=== PATIENT | female | born 1985 | race Caucasian/White ===

== ENCOUNTER 2018-08-29 12:58 | Emergency (ER) | payer OTHER ==
[~2018-08-29] VITALS: Ht 152.4 cm; Wt 65.8 kg
[2018-08-29 14:16] LABS: ABSOLUTE NEUTROPHILS 5.9 thou/uL (1.4-8.2); BASOPHILS 0.4 % (0.0-2.0); EOSINOPHILS 0.5 % (0.0-3.0); HEMATOCRIT 37.3 % (37.0-47.0); HEMOGLOBIN 12.6 gm/dL (12.0-15.0); LYMPHOCYTES 20.1 % (24.0-44.0); MCH 32.4 pg (26.0-34.0); MCHC 33.7 g/dL (28.0-37.0); MCV 96.2 fL (80.0-100.0); MONOCYTES 6.2 % (1.0-8.0); PLATELET COUNT 255 thou/uL (150-400); POLYS 72.8 % (36.0-66.0); RBC 3.88 mil/uL (4.20-5.00); WBC 8.1 thou/uL (4.0-11.0)
[2018-08-29 14:18] LABS: URINE BILIRUBIN NEGATIVE (Negative); URINE BLOOD NEGATIVE (Negative); URINE CLARITY CLOUDY; URINE COLOR YELLOW; URINE GLUCOSE-RANDOM* NEGATIVE (Negative); URINE KETONES NEGATIVE (Negative); URINE LEUKOCYTES 1+ (Negative); URINE NITRITE NEGATIVE (Negative); URINE PROTEIN (DIPSTICK) NEGATIVE (Negative); URINE SPECIFIC GRAVITY <= 1.005 (1.005-1.035); URINE UROBILINOGEN 0.2 E.U./dl (0.2-1.0)
[2018-08-29 14:20] LABS: ANION GAP 10 mmol/L (7-16); BUN 11 mg/dL (7-18); CALCIUM 9.1 mg/dL (8.5-10.1); CHLORIDE 102 mmol/L (98-107); CO2 24 mmol/L (21-32); CREATININE 0.6 mg/dL (0.6-1.0); GLUCOSE 94 mg/dL (74-106); SODIUM 136 mmol/L (136-145)
[2018-08-29 14:26] LABS: ALBUMIN 4.1 g/dL (3.4-5.0); DIRECT BILIRUBIN < 0.1 mg/dL (<0.1-0.3); LIPASE 100 U/L (73-393); POTASSIUM 4.2 mmol/L (3.5-5.1); SGOT 22 U/L (15-37); SGPT 24 U/L (30-65); TOTAL BILIRUBIN 0.3 mg/dL (<0.1-1.0); TOTAL PROTEIN 7.7 g/dL (6.4-8.2)
[2018-08-29 14:28] LABS: BACTERIA 1-9 Few /HPF (None Seen); CASTS None Seen /LPF (None Seen); CRYSTALS None Seen /LPF (None Seen); SQUAMOUS 0-3 Few /LPF (0-3); URINE RBC None Seen /HPF (0-2); URINE WBC 0-5 Rare /HPF (0-5)
[2018-08-29] MEDS ORDERED: ONDANSETRON HCL4 M2 PO (16:13)
[2018-08-29] MEDS ORDERED: NORCO 5-325 TA1 EAC1 PO (16:20)
[2018-08-29 16:23] VITALS: BP 125/80
== END 2018-08-29 16:23 | disposition home or self-care (01) ==
LOC: ER 12:58
PROVIDERS: Nurse Practitioner
DX: R10.11 Right upper quadrant pain (principal); Z98.890 Other specified postprocedural states; Z90.711 Acquired absence of uterus with remaining cervical stump

== ENCOUNTER 2018-09-15 11:18 | Inpatient (IN) | payer OTHER ==
[~2018-09-15] VITALS: Ht 152.4 cm; Wt 71.2 kg
[2018-09-15] VITALS (8 sets, daily range): BP systolic 107–131; BP diastolic 67–87
[~2018-09-15 11:18] MED LIST: ACETAMINOPHEN-1 EAC1 PO; BENADRYL25 MG PO; NORCO 5-325 TA1 EAC1 PO; ONDANSETRON HCL4 M2 PO; SYNTHROID25 MC1 PO
--- NOTE | 2018-09-15 20:45 | NUR ---
PT ARRIVED TO UNIT POST OP AT APPROX 1600. ALERT AND ORIENTED. VSS. NAD NOTED. ADMISSION COMPLETE. PAIN MEDS GIVEN NEEDED YORDY PARTIAL RELIEF. FAMILY AT BEDSIDE. WILL CONTINUE TO MONITOR.
--- NOTE | 2018-09-16 02:53 | NUR ---
ASSUMED CARE OF PT AT 1900HRS. PT IS AOX4 AND LETS NEEDS BE KNOWN. PT AMBULATED TO THE TOILET. PT REPORTED PAIN AND ITCH. NO NAUSEA WAS REPORTED THIS SHIFT. PT MEDICATED WITH PRN MEDS. PT VOIDED THIS SHIFT. VSS AND NO S/S OF ACUTE DISTRESS. WILL CONTINUE TO MONITOR.
[2018-09-16 07:55] VITALS: BP 113/67
[2018-09-16 16:21] VITALS: BP 113/67
[2018-09-16 20:04] VITALS: BP 128/90
--- NOTE | 2018-09-16 20:40 | NUR ---
ASSUMED CARE OF PATIENT AT 0715, PATIENT ALERT AND ORIENTED X 4. PATIENT UP WITH SBA TO BATHROOM. PATIENT C/O PAIN MOST OF THE SHIFT, AND NAUSEA X 2. PATIENT NOT TOLERATING CLEAR LIQUIDS. DR ORDAZ NOTIFIED TO CHANGE STATUS FROM OBSERVATION TO INPATIENT. PATIENT HAS LEFT FOREARM IV WITH IV FLUIDS AT 80CC/HR. PATIENT HAS 4 LAP SITES WITH BANDAIDS COVERING. DR ORDAZ ORDERED MORE FOR NAUSEA, RECEIVED ORDER TO DISCONTINUE TO ORCO, AND ADD PERCOCET 1 TAB EVERY 4 HOURS/PRN. WILL CONTINUE TO MONITOR.
[2018-09-17 04:24] VITALS: BP 99/60
--- NOTE | 2018-09-17 05:25 | NUR ---
PATIENT ALERT AND ORIENTED X4. UP ADLIB TO BATHROOM. PASSING GAS. AT BEDSIDE THROUGHOUT THE NIGHT. IVF INFUSING W/O COMPLICATION. PAIN MEDS GIVEN DURING THE NIGHT. MEDICATED FOR NAUSEA, HOWEVER, NO EMESIS. C/O ITCHING AND SCHEDULED MEDICATION GIVEN, NO BENEDRYL ADMINISTERED DURING THE NIGHT. RESTING QUIETLY. COOPERATIVE WITH CARE. WILL MONITOR.
[2018-09-17 08:42] VITALS: BP 110/73
--- NOTE | 2018-09-17 11:13 | NUR ---
Assumed pt care this am, she is up at marcelo and able to ambulate from the bed to the toilet with a steady gait. pain was noted managed with medication. Tolerating clear liquids, advancing to soft diet will monitor for any signs of distress.
[2018-09-17] MEDS ORDERED: PHENERGAN 25 MG25 M1 PO (11:35)
[2018-09-17] MEDS ORDERED: PERCOCET PO (11:36)
[2018-09-17 12:48] VITALS: BP 110/73
== END 2018-09-17 15:32 | disposition home or self-care (01) | DRG 419 ==
LOC: 4W 11:18 → TBA 11:18 → PRE 12:27 → 4W 16:19
PROVIDERS: ADMIT Surgery
PROC: BF121ZZ Fluoroscopy of Gallbladder using Low Osmolar Contrast (ICD-10-PCS; principal; 2018-09-15)
PROC: 0FT44ZZ Resection of Gallbladder, Percutaneous Endoscopic Approach (ICD-10-PCS; principal; 2018-09-15)
DX: K81.9 Cholecystitis, unspecified (principal); Z79.899 Other long term (current) drug therapy
CPT/HCPCS: 10047; 50010; 50101; 50411; 50555; 50558; 51489; 53307; 53310; 55245; 55317; 56462; 56525; 56526; 62110; 62900; 70005

== ENCOUNTER 2019-05-31 11:45 | Emergency (ER) | payer OTHER ==
[~2019-05-31] VITALS: Ht 152.4 cm; Wt 70.3 kg
[~2019-05-31 11:45] MED LIST changes: +PERCOCET PO; +PHENERGAN 25 MG25 M1 PO
[2019-05-31] MEDS ORDERED: ALPRAZOLAM0.5 M1 PO (12:12)
[2019-05-31] MEDS ORDERED: CLARITIN10 M3 PO (12:13)
[2019-05-31 13:18] VITALS: BP 142/90
== END 2019-05-31 13:18 | disposition home or self-care (01) ==
LOC: ER 11:45
DX: Z03.818 Encounter for observation for suspected exposure to other biological agents ruled out (principal); R05 Cough; R09.81 Nasal congestion; R07.1 Chest pain on breathing; K21.9 Gastro-esophageal reflux disease without esophagitis; E03.9 Hypothyroidism, unspecified; R19.7 Diarrhea, unspecified; Z90.711 Acquired absence of uterus with remaining cervical stump; Z90.49 Acquired absence of other specified parts of digestive tract; Z79.899 Other long term (current) drug therapy

== ENCOUNTER → 2019-08-03 | Outpatient (CLI) | payer OTHER ==
[~2019-08-03] MED LIST changes: +ALPRAZOLAM0.5 M1 PO; +CLARITIN10 M3 PO
== END ==
LOC: LAB 07:54
PROVIDERS: ATTEND Student in an Organized Health Care Education/Training Program
DX: Z01.818 Encounter for other preprocedural examination (principal); Z11.59 Encounter for screening for other viral diseases

== ENCOUNTER → 2019-08-03 | Outpatient (CLI) | payer OTHER | END | disposition home or self-care (01) | LOC: GI 12:44 | PROVIDERS: ATTEND Nurse Practitioner | DX: R13.10 Dysphagia, unspecified (principal); K21.9 Gastro-esophageal reflux disease without esophagitis; E03.9 Hypothyroidism, unspecified; Z98.890 Other specified postprocedural states; Z79.899 Other long term (current) drug therapy; Z90.49 Acquired absence of other specified parts of digestive tract; Z86.010 Personal history of colon polyps; Z90.711 Acquired absence of uterus with remaining cervical stump | CPT/HCPCS: 62110; 62900 ==

== ENCOUNTER → 2020-01-11 | Outpatient (CLI) | payer OTHER | LOC: LAB 13:57 | PROVIDERS: ATTEND Internal Medicine Cardiovascular Disease | DX: R05 Cough (principal); R09.81 Nasal congestion; R06.02 Shortness of breath; U07.1 COVID-19 ==

== ENCOUNTER → 2020-02-14 | Outpatient (CLI) | payer OTHER | LOC: CAT 12:28 | PROVIDERS: ATTEND Internal Medicine | DX: Z13.6 Encounter for screening for cardiovascular disorders (principal); I25.10 Atherosclerotic heart disease of native coronary artery without angina pectoris; E78.00 Pure hypercholesterolemia, unspecified ==

== ENCOUNTER → 2020-02-16 | Outpatient (CLI) | payer OTHER ==
[2020-02-16 11:14] LABS: ABSOLUTE NEUTROPHILS 3.1 thou/uL (1.4-8.2); BASOPHILS 0.5 % (0.0-2.0); EOSINOPHILS 1.8 % (0.0-3.0); HEMATOCRIT 40.5 % (37.0-47.0); HEMOGLOBIN 13.7 gm/dL (12.0-15.0); LYMPHOCYTES 29.9 % (24.0-44.0); MCH 32.4 pg (26.0-34.0); MCHC 33.8 g/dL (28.0-37.0); MCV 95.7 fL (80.0-100.0); PLATELET COUNT 285 thou/uL (150-400); POLYS 59.8 % (36.0-66.0); RBC 4.23 mil/uL (4.20-5.00); RDW 12.1 % (10.5-14.5); WBC 5.1 thou/uL (4.0-11.0)
[2020-02-16 11:24] LABS: ALBUMIN 4.6 g/dL (3.4-5.0); ANION GAP 14 mmol/L (7-16); BUN 19 mg/dL (7-18); CALCIUM 9.3 mg/dL (8.5-10.1); CHLORIDE 105 mmol/L (98-107); CHOLESTEROL 183 mg/dL (<200); CO2 22 mmol/L (21-32); CREATININE 0.8 mg/dL (0.6-1.0); GLUCOSE 96 mg/dL (74-106); HDL CHOLESTEROL 36 mg/dL (>40); LDL CHOLESTEROL 126 mg/dL (<100); POTASSIUM 3.9 mmol/L (3.5-5.1); SGOT 68 U/L (15-37); SGPT 147 U/L (30-65); SODIUM 141 mmol/L (136-145); TC:HDL 5.1 Ratio (Not establshd); TOTAL BILIRUBIN 0.5 mg/dL (0.2-1.0); TOTAL PROTEIN 8.5 g/dL (6.4-8.2); TRIGLYCERIDE 108 mg/dL (<150); VLDL 22 mg/dL (<40)
[2020-02-16 23:06] LABS: GLYCOHEMOGLOBIN (HGB A1C) 5.3 % (4.8-5.6)
== END ==
LOC: LAB 10:25
PROVIDERS: ATTEND Family Medicine
DX: Z00.00 Encounter for general adult medical examination without abnormal findings (principal)

== ENCOUNTER 2020-02-19 09:36 | Emergency (ER) | payer OTHER ==
[~2020-02-19] VITALS: Ht 149.9 cm; Wt 73.5 kg
[2020-02-19 10:15] LABS: URINE BILIRUBIN NEGATIVE (Negative); URINE BLOOD NEGATIVE (Negative); URINE CLARITY CLEAR; URINE COLOR YELLOW; URINE GLUCOSE-RANDOM* NEGATIVE (Negative); URINE KETONES NEGATIVE (Negative); URINE LEUKOCYTES-REFLEX TRACE (Negative); URINE NITRITE-REFLEX NEGATIVE (Negative); URINE PROTEIN (DIPSTICK) NEGATIVE (Negative); URINE SPECIFIC GRAVITY >= 1.030 (1.005-1.035); URINE UROBILINOGEN 0.2 E.U./dl (0.2-1.0)
[2020-02-19 10:17] LABS: ABSOLUTE NEUTROPHILS 4.5 thou/uL (1.4-8.2); EOSINOPHILS 1.9 % (0.0-3.0); HEMATOCRIT 40.4 % (37.0-47.0); HEMOGLOBIN 13.5 gm/dL (12.0-15.0); LYMPHOCYTES 26.4 % (24.0-44.0); MCH 32.2 pg (26.0-34.0); MCHC 33.3 g/dL (28.0-37.0); MCV 96.6 fL (80.0-100.0); MONOCYTES 5.1 % (1.0-8.0); POLYS 65.6 % (36.0-66.0); RBC 4.18 mil/uL (4.20-5.00); RDW 12.3 % (10.5-14.5); WBC 6.8 thou/uL (4.0-11.0)
[2020-02-19 10:20] LABS: ANION GAP 15 mmol/L (7-16); BUN 15 mg/dL (7-18); CHLORIDE 104 mmol/L (98-107); CO2 18 mmol/L (21-32); CREATININE 0.6 mg/dL (0.6-1.0); GLUCOSE 106 mg/dL (74-106); POTASSIUM 4.8 mmol/L (3.5-5.1); SODIUM 137 mmol/L (136-145)
--- NOTE | 2020-02-19 10:23 | EKG ---
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
[2020-02-19 10:30] LABS: ALBUMIN 4.3 g/dL (3.4-5.0); SGOT 67 U/L (15-37); SGPT 122 U/L (30-65); TOTAL BILIRUBIN 0.4 mg/dL (0.2-1.0); TOTAL PROTEIN 8.2 g/dL (6.4-8.2); TROPONIN-I <0.06 ng/mL (<0.06)
[2020-02-19 11:26] VITALS: BP 119/98
[2020-02-19 14:25] LABS: PLATELET COUNT 235 thou/uL (150-400)
== END 2020-02-19 11:26 | disposition home or self-care (01) ==
LOC: ER 09:36
PROVIDERS: Emergency Medicine
DX: R07.89 Other chest pain (principal); R42 Dizziness and giddiness; R51.9 Headache, unspecified; R53.83 Other fatigue; R03.0 Elevated blood-pressure reading, without diagnosis of hypertension; R20.0 Anesthesia of skin; K21.9 Gastro-esophageal reflux disease without esophagitis; E03.9 Hypothyroidism, unspecified; Z90.711 Acquired absence of uterus with remaining cervical stump; Z98.890 Other specified postprocedural states; Z90.49 Acquired absence of other specified parts of digestive tract; Z79.899 Other long term (current) drug therapy; Z87.891 Personal history of nicotine dependence

== ENCOUNTER → 2020-02-19 | Outpatient (CLI) | payer OTHER | LOC: SJCVCIMAG 11:35 | PROVIDERS: ATTEND Internal Medicine Cardiovascular Disease | DX: R10.9 Unspecified abdominal pain (principal); R94.5 Abnormal results of liver function studies; R06.00 Dyspnea, unspecified; I10 Essential (primary) hypertension; R51.9 Headache, unspecified; R07.89 Other chest pain; Z90.49 Acquired absence of other specified parts of digestive tract ==

== ENCOUNTER → 2020-02-22 | Outpatient (CLI) | payer OTHER | LOC: ULTRA 12:34 → BC 12:34 | PROVIDERS: ATTEND Family Medicine | DX: N63.10 Unspecified lump in the right breast, unspecified quadrant (principal) ==

== ENCOUNTER → 2020-03-13 | Outpatient (CLI) | payer OTHER ==
[2020-03-13 13:36] LABS: ALBUMIN 4.5 g/dL (3.4-5.0); CALCIUM 9.6 mg/dL (8.5-10.1); CREATININE 0.9 mg/dL (0.6-1.0); POTASSIUM 3.4 mmol/L (3.5-5.1); TOTAL BILIRUBIN 0.4 mg/dL (0.2-1.0); TOTAL PROTEIN 8.3 g/dL (6.4-8.2)
[2020-03-14 00:06] LABS: HAV IgM AB (ANTI-HAV IgM) Negative (Negative); HEPATITIS B SURFACE AG Negative (Negative); HEPATITIS C VIRUS AB <0.1 (0.0-0.9)
== END ==
LOC: LAB 12:51
PROVIDERS: ATTEND Family Medicine
DX: R94.5 Abnormal results of liver function studies (principal)

== ENCOUNTER → 2020-05-07 | Outpatient (CLI) | payer OTHER | LOC: LAB 08:42 | PROVIDERS: ATTEND Family Medicine | DX: D68.0 Von Willebrand disease (principal) ==

== ENCOUNTER → 2020-05-28 | Outpatient (CLI) | payer OTHER | LOC: RAD 14:46 | PROVIDERS: ATTEND Family Medicine | DX: R10.2 Pelvic and perineal pain (principal) ==

== ENCOUNTER → 2020-05-29 | Outpatient (CLI) | payer OTHER | LOC: CAT 16:36 | PROVIDERS: ATTEND Family Medicine | DX: N32.89 Other specified disorders of bladder (principal); Z90.49 Acquired absence of other specified parts of digestive tract; Z90.710 Acquired absence of both cervix and uterus ==

== ENCOUNTER → 2020-07-03 | Outpatient (CLI) | payer OTHER | LOC: RAD 12:27 | PROVIDERS: ATTEND Nurse Practitioner | DX: Z04.3 Encounter for examination and observation following other accident (principal); W19.XXXA Unspecified fall, initial encounter ==

== ENCOUNTER → 2020-08-05 | Outpatient (CLI) | payer OTHER | LOC: MRI 08:17 | PROVIDERS: ATTEND Physical Medicine & Rehabilitation Sports Medicine | DX: M50.323 Other cervical disc degeneration at C6-C7 level (principal); R20.2 Paresthesia of skin; R29.898 Other symptoms and signs involving the musculoskeletal system ==

== ENCOUNTER → 2020-09-06 | Day surgery (SDC) | payer OTHER ==
[~2020-09-06] VITALS: Ht 149.9 cm; Wt 78.0 kg
[~2020-09-06] MED LIST changes: +BUPROPION XL300 MG PO; +TOPAMAX 100 MG100 MG PO
--- NOTE | ~2020-09-06 | O ---
[facility] [place] [address] OPERATIVE REPORT Name: KRYSTA KINCAID Room #: [facility]..#: [id number] Admission: 09/06/20 Attend Phys: Jose Eli MD Discharge: Date of : 81 Report #: [id number] THIS REPORT FOR: cc: Israel Zuniga James A. DO Yager, Craig A. MD ~ DATE OF SERVICE: 09/06/2020 PREOPERATIVE DIAGNOSIS: Left carpal tunnel syndrome. POSTOPERATIVE DIAGNOSIS: Left carpal tunnel syndrome. PROCEDURE: Left wrist median nerve decompression. ANESTHESIA: LMA. DESCRIPTION OF PROCEDURE: The patient was brought back to the operating room and anesthesia was given. Once satisfactory anesthesia was achieved, a nonsterile tourniquet was placed on the operative left upper extremity. The arm was then prepped and draped in the usual sterile fashion. After prepping and draping, once all members of surgical team were present and a time-out was called and the appropriate patient, site and procedure as well as administration preprocedure antibiotics was confirmed. The arm was elevated, exsanguinated and tourniquet inflated to 250 mmHg. Standard 2 cm incision was made in the webspace between the long and ring fingers. This was carried sharply through skin. Fascial tissue was transected sharply. Retractors were placed. Transverse carpal ligament was identified and transected with a clean #15 blade. Attention was then turned proximally. Tenotomy scissors were placed under the transverse carpal ligament, which was spread apart. It was then resected proximally in the sliding motion. A [place] elevator was inserted to ensure adequate release had been performed. Attention was then turned distally. Transverse carpal ligament was released with tenotomy sutures until deep ____ could be identified. The wound was then checked to ensure adequate release had occurred proximally and distally. It was then irrigated. Closure was performed with 4-0 nylon suture in a simple interrupted fashion. Xeroform, 4 x 4's, and an Andi wrap were placed as final dressing. The patient tolerated the procedure well. There were no complications. COMPLICATIONS: None. ESTIMATED BLOOD LOSS: 5 mL. [facility] [address] [place] [address] OPERATIVE REPORT Name: KRYSTA KINCAID [facility] Room #: REG [facility].#: [id number] Admission: 09/06/20 Attend Phys: Jose Eli MD Discharge: Date of : 81 Report #: [id number] DISPOSITION: The patient will be nonweightbearing with the left upper extremity for 2 weeks. Plan for followup in 2 weeks for suture removal. By: 1010 1102 Jose Eli MD /nt
[2020-09-06 09:25] VITALS: BP 146/85
[2020-09-06 11:22] VITALS: BP 146/85
== END | disposition home or self-care (01) ==
LOC: OR 08:41
PROVIDERS: ATTEND Orthopaedic Surgery
DX: G56.02 Carpal tunnel syndrome, left upper limb (principal); E03.9 Hypothyroidism, unspecified; G43.909 Migraine, unspecified, not intractable, without status migrainosus; F32.9 Major depressive disorder, single episode, unspecified; Z98.890 Other specified postprocedural states; Z79.899 Other long term (current) drug therapy; Z87.891 Personal history of nicotine dependence; Z90.711 Acquired absence of uterus with remaining cervical stump
CPT/HCPCS: 50010; 50101; 50386; 56526; 57092; 57178; 62110; 62900; 70005

== ENCOUNTER 2020-11-01 17:10 | Inpatient (IN) | payer OTHER ==
[~2020-11-01] VITALS: Ht 149.9 cm; Wt 73.5 kg
[2020-11-01 17:13] VITALS: BP 129/81
[2020-11-01] MEDS ORDERED: ADDERALL 20 MG20 MG PO (17:29)
[2020-11-01] MEDS ORDERED: BYSTOLIC10 MG PO (23:42)
[2020-11-01] MEDS ORDERED: NEXIUM 24HR20 M2 PO (23:43)
[2020-11-02 06:23] LABS: HEMATOCRIT 39.9 % (37.0-47.0); HEMOGLOBIN 13.7 gm/dL (12.0-15.0); MCH 32.9 pg (26.0-34.0); MCHC 34.3 g/dL (28.0-37.0); MCV 95.7 fL (80.0-100.0); RBC 4.17 mil/uL (4.20-5.00); RDW 12.1 % (10.5-14.5); WBC 5.5 thou/uL (4.0-11.0)
[2020-11-02 06:36] LABS: CALCIUM 9.1 mg/dL (8.5-10.1); CREATININE 0.9 mg/dL (0.6-1.0); POTASSIUM 3.4 mmol/L (3.5-5.1)
[2020-11-02 08:30] VITALS: BP 122/79
[2020-11-02 08:47] VITALS: BP 116/71
[2020-11-02 11:17] VITALS: BP 124/82
[2020-11-02 16:21] VITALS: BP 109/72
[2020-11-02] MEDS ORDERED: HYDROCODON-ACE1 EAC7 PO (17:16)
[2020-11-02] MEDS ORDERED: PROTONIX40 M2 PO (17:16)
[2020-11-02 17:37] VITALS: BP 109/72
--- NOTE | 2020-11-02 19:35 | NUR ---
RN ASSUMED PT'S CARE AT 0830-1840PM, PT ADIMITTED [facility] ER FOR ESOPHAGEAL STRICTURE, PT HAS DONE PROCEDURE TODAY ( ESOPHAGUS DILATION), PT WAS TOLEATIVE THIS PROCEDURE, AFTER THEN , PT'S THYOAT PAIN HAS IMPROVED, PT IS TOLERATVE HER LUCH AND DINNER , PT'S VS ARE STABLE, RN RECEIVED ORDER TO DC PT TO HOME, PT UNDERSTANDED DC TEACHING Rae PALOMO ON AIR DIRECTOR USE W/C TO SEND PT TO ER FRONT DOOR TO MEET PT'S MOTHER AT 1840PM.
--- NOTE | 2020-11-05 16:06 | PATH ---
[facility] [address] [place] [address] PATHOLOGY RPT PROCEDURE Name: SANJIVFATEMEHANA PAULA WARE Room #: 440-P DIS IN M.R.#: [id number] Admission: 11/01/20 Date of : 81 Discharge: 11/02/20 Report #: [id number] Path Case #: [id number] [facility] Accession Number: [id number] . 01 Material submitted: . esophagus - RANDOM ESOPHAGEAL BIOPSY . 02 Diagnosis: Squamous mucosa, random esophageal R/O eosinophilic esophagitis, endoscopic biopsy: - Mild active esophagitis with features of reflux esophagitis. - No increase in eosinophils within the epithelium. - Negative for dysplasia or malignancy. (IUV:magui; 11/05/2020) QMS 11/05/2020 1504 Local . 02 Electronically signed: . Ximena Flores MD, Pathologist NPI- [id number] . 01 Gross description: . The specimen is received in formalin, labeled "Sanjiv, Fatemeh, random esophageal BX R/O EOE". It consists of multiple clark-white, irregular soft tissue fragments measuring 1.0 x 0.5 x 0.1 cm in aggregate. The specimen is entirely submitted between sponges in A1. (MRF; 11/04/2020) MFE/MFE 11/05/2020 1503 Local . 02 Pathologist provided ICD-10: K20.90 . 02 CPT . 142186 Specimen Comment: A courtesy copy of this report has been sent to [phone] Specimen Comment: Report sent to Performed at: [address], [place] [id number] MD Kishore Ritchie MD Phone: [phone] Performed at: [address] [id number] MD Ximena Flores MD Phone: [phone]
== END 2020-11-02 18:38 | disposition home or self-care (01) | DRG 392 ==
LOC: ER 17:10 → EROBS 20:11 → 4S 11-02 08:39
PROVIDERS: Nurse Practitioner Family; ADMIT Hospitalist; ATTEND Hospitalist
PROC: 0DB68ZX Excision of Stomach, Via Natural or Artificial Opening Endoscopic, Diagnostic (ICD-10-PCS; principal; 2020-11-02)
DX: K21.00 Gastro-esophageal reflux disease with esophagitis, without bleeding (principal); R13.10 Dysphagia, unspecified; I10 Essential (primary) hypertension; G43.909 Migraine, unspecified, not intractable, without status migrainosus; Z20.822 Contact with and (suspected) exposure to COVID-19
CPT/HCPCS: 62110; 62900; 70005

== ENCOUNTER → 2020-12-04 | Outpatient (CLI) | payer OTHER ==
[~2020-12-04] MED LIST changes: +ADDERALL 20 MG20 MG PO; +BYSTOLIC10 MG PO; +HYDROCODON-ACE1 EAC7 PO; +NEXIUM 24HR20 M2 PO; +PROTONIX40 M2 PO
== END ==
LOC: ULTRA → RAD 07:31
PROVIDERS: ATTEND Otolaryngology
DX: R13.10 Dysphagia, unspecified (principal)

== ENCOUNTER → 2021-01-24 | Outpatient (CLI) | payer OTHER | LOC: BC 08:51 | PROVIDERS: ATTEND Family Medicine | DX: R92.8 Other abnormal and inconclusive findings on diagnostic imaging of breast (principal); N63.20 Unspecified lump in the left breast, unspecified quadrant ==